=== PATIENT | male | born 1990 | race Hispanic/Latino ===

== ENCOUNTER 2019-03-05 22:47 | Emergency (ER) | payer SELFPAY ==
[2019-03-05 23:29] LABS: #Lymphocytes 1.8 thou/uL (1.20-3.40); #Monocytes 1.4 thou/uL (0.11-0.59); #Neutrophils 7.9 thou/uL (1.40-6.50); %Basophils 0.3 % (0.0-1.0); %Eosinophils 0.3 % (0.0-10.0); %Lymphocytes 15.9 % (21.0-51.0); %Monocytes 12.5 % (0.0-10.0); %Neutrophils 71.1 % (42.0-75.0); Hemoglobin 15.3 g/dL (14.0-18.0); Mean Corpuscular HGB CONC 33.5 g/dL (32.0-36.0); Mean Corpuscular Hemoglobin 32.3 pg (27.0-31.0); Mean Corpuscular Volume 96.6 fL (78.0-98.0); Mean Platelet Volume 7.8 fL (7.4-10.4); Platelet Count 216 thou/uL (130-400); RBC Distribution Width 12.8 % (11.5-14.5); Red Blood Cell (RBC) Count 4.73 mill/uL (4.70-6.10); White Blood Cell (WBC) Count 11.1 thou/uL (4.8-10.8)
[2019-03-05 23:46] LABS: ALT (SGPT) 24 U/L (8-55); AST (SGOT) 46 U/L (5-34); Alkaline Phosphatase 66 U/L (40-150); Anion Gap 16 mmol/L (10-20); BUN (Urea Nitrogen) 19 mg/dL (8.9-20.6); Calc. Creatinine Clearance 0 mL/min (70-130); Calcium 10.5 mg/dL (7.8-10.44); Carbon Dioxide 24 mmol/L (22-29); Chloride 103 mmol/L (98-107); Estimated GFR-MDRD 90; Globulin 3.1 g/dL (2.4-3.5); Glucose 110 mg/dL (70-105); Protein, Total 8.1 g/dL (6.0-8.3); Sodium 140 mmol/L (136-145)
--- NOTE | 2019-03-05 23:50 | CT ---
Head CT without contrast 03/05/2019: HISTORY: Facial tingling TECHNIQUE: Axial CT imaging at 5 mm intervals from vertex through skull base without contrast FINDINGS: The imaged paranasal sinuses and mastoid air cells are well aerated. No displaced calvarial fracture. No intracranial hemorrhage, midline shift, mass effect, or ventricular enlargement. IMPRESSION: No acute findings.
== END 2019-03-06 01:00 | disposition home or self-care (01) ==
LOC: ERS 22:47
DX: R20.2 Paresthesia of skin (principal); F17.210 Nicotine dependence, cigarettes, uncomplicated
CPT/HCPCS: 36415; 70450; 80053; 84443; 85025; 93005; 96360

== ENCOUNTER 2019-06-29 04:29 | Emergency (ER) | payer SELFPAY ==
[2019-06-29] MEDS ORDERED: Ibuprofen 800 MG TAB ONE (05:05)
== END 2019-06-29 05:08 | disposition home or self-care (01) ==
LOC: ERS 04:29
DX: H66.93 Otitis media, unspecified, bilateral (principal); F17.210 Nicotine dependence, cigarettes, uncomplicated
CPT/HCPCS: 99282

== ENCOUNTER 2024-05-03 09:53 | Inpatient (IN) | payer OTHER, SELFPAY ==
[2024-05-03] MEDS ORDERED: chlordiazePOXIDE HCl 25 MG CAP ONE (12:26)
[2024-05-03] MEDS ORDERED: Lorazepam 2 MG/ML VIAL ONE ×3 (12:26→17:39)
[2024-05-03 12:28] LABS: #Basophils 0.05 10x3/uL (0.0-0.2); %Basophils 0.6 % (0.0-1.0); %Eosinophils 2.1 % (0.0-10.0); %Lymphocytes 14.3 % (21.0-51.0); %Monocytes 13.8 % (0.0-10.0); Hematocrit 39.1 % (42.0-52.0); Hemoglobin 13.6 g/dL (14.0-18.0); Mean Corpuscular HGB CONC 34.8 g/dL (32.0-36.0); Mean Corpuscular Hemoglobin 34.2 pg (27.0-31.0); Mean Corpuscular Volume 98.2 fL (78.0-98.0); Mean Platelet Volume 10.1 fL (7.4-10.4); Platelet Count 227 10x3/uL (130-400); RBC Distribution Width 12.7 % (11.5-14.5); Red Blood Cell (RBC) Count 3.98 mill/uL (4.70-6.10)
[2024-05-03 12:42] LABS: Lipase 12 U/L (8-78); Magnesium 2.3 mg/dL (1.6-2.6)
[2024-05-03 12:43] LABS: Acetaminophen Less than 10 mcg/mL (Less than 10); Alcohol Less than 10.0 mg/dL (Less than 10); Salicylate Less than 8.0 mg/dL (Less than 8.0)
[2024-05-03 12:44] LABS: ALT (SGPT) 38 U/L (8-55); AST (SGOT) 104 U/L (5-34); Albumin 4.3 g/dL (3.5-5.0); Alkaline Phosphatase 70 U/L (40-110); Anion Gap 14 mmol/L (10-20); BUN (Urea Nitrogen) 26 mg/dL (8.9-20.6); Bilirubin, Total 1.5 mg/dL (0.2-1.2); Calc. Creatinine Clearance 0 mL/min (70-130); Calcium 9.9 mg/dL (7.8-10.44); Carbon Dioxide 23 mmol/L (22-29); Chloride 105 mmol/L (98-107); Estimated GFR 118; Globulin 3.1 g/dL (2.4-3.5); Glucose 81 mg/dL (70-105); Potassium 3.3 mmol/L (3.5-5.1); Protein, Total 7.4 g/dL (6.0-8.3); Sodium 139 mmol/L (136-145)
[2024-05-03 12:49] LABS: Troponin I Less than 0.010 ng/mL (< 0.028)
[2024-05-03] MEDS ORDERED: Senokot S 8.6-50 MG TAB PO PRN (14:30)
[2024-05-03] MEDS ORDERED: Calcium Carbonate 500 MG ChewTAB PO PRN (14:30)
[2024-05-03] MEDS ORDERED: Lorazepam 2 MG/ML VIAL IM PRN (14:30)
[2024-05-03] MEDS ORDERED: Ondansetron PF 4 MG/2 ML Vial IVP PRN (14:30)
[2024-05-03] MEDS ORDERED: Electrolyte Replacement Protocol 1 EACH FS SCH (14:30)
[2024-05-03] MEDS ORDERED: Acetaminophen 325 MG TAB PO PRN (14:30)
[2024-05-03] MEDS ORDERED: Lorazepam 1 MG TAB PO PRN (15:00)
[2024-05-03] MEDS ORDERED: Folic Acid 1 MG TAB ONE (16:37)
[2024-05-03] MEDS ORDERED: Thiamine HCl 200 MG/2 ML VIAL ONE (16:37)
[2024-05-03] MEDS ORDERED: Lorazepam 1 MG TAB ONE (16:37)
[2024-05-03] MEDS ORDERED: Multivit, Therapeutic 1 TAB ONE (16:37)
[2024-05-03] MEDS: Sodium Chloride 0.9% 1,000 ML IV SCH (16:44)
[2024-05-03] MEDS: Lorazepam 1 MG TAB PO SCH (16:45)
[2024-05-03] MEDS: Thiamine HCl 200 MG/2 ML VIAL SLOW IVP SCH (16:45)
[2024-05-03] MEDS: Folic Acid 1 MG TAB PO SCH (16:45)
[2024-05-03] MEDS: Multivit, Therapeutic 1 TAB PO SCH (16:45)
[2024-05-03 16:49] VITALS: BMI 22.8
[2024-05-03 18:06] LABS: Amphetamine Detected (NotDetected); Barbiturates Screen Not Detected (NotDetected); Benzodiazepine Screen Detected (NotDetected); Cocaine Metabolite Screen Not Detected (NotDetected); Methadone Not Detected (NotDetected); Methamphetamine Detected (NotDetected); Opiate Screen Not Detected (NotDetected); Oxycodone Screen Not Detected (NotDetected); Phencyclidine (PCP) Not Detected (NotDetected); THC/Cannabinoid Screen Not Detected (NotDetected); Tricyclic Screen Not Detected (NotDetected)
[2024-05-03] MEDS: Potassium Chloride 20 MEQ TAB PO SCH (21:36)
[2024-05-04 05:23] LABS: #Basophils 0.03 10x3/uL (0.0-0.2); %Basophils 0.5 % (0.0-1.0); %Eosinophils 6.5 % (0.0-10.0); %Lymphocytes 17.7 % (21.0-51.0); %Monocytes 13.9 % (0.0-10.0); %Neutrophils 61.2 % (42.0-75.0); Hematocrit 38.3 % (42.0-52.0); Hemoglobin 12.7 g/dL (14.0-18.0); Mean Corpuscular HGB CONC 33.2 g/dL (32.0-36.0); Mean Corpuscular Hemoglobin 33.2 pg (27.0-31.0); Mean Corpuscular Volume 100.3 fL (78.0-98.0); Mean Platelet Volume 10.1 fL (7.4-10.4); Platelet Count 214 10x3/uL (130-400); RBC Distribution Width 12.6 % (11.5-14.5); Red Blood Cell (RBC) Count 3.82 mill/uL (4.70-6.10)
[2024-05-04 06:19] LABS: ALT (SGPT) 32 U/L (8-55); AST (SGOT) 71 U/L (5-34); Albumin 3.5 g/dL (3.5-5.0); Alkaline Phosphatase 64 U/L (40-110); Anion Gap 11 mmol/L (10-20); BUN (Urea Nitrogen) 15 mg/dL (8.9-20.6); Calc. Creatinine Clearance 120 mL/min (70-130); Calcium 8.7 mg/dL (7.8-10.44); Carbon Dioxide 26 mmol/L (22-29); Chloride 106 mmol/L (98-107); Estimated GFR 118; Globulin 2.6 g/dL (2.4-3.5); Glucose 101 mg/dL (70-105); Magnesium 2.2 mg/dL (1.6-2.6); Phosphorus 4.3 mg/dL (2.3-4.7); Potassium 3.5 mmol/L (3.5-5.1); Protein, Total 6.1 g/dL (6.0-8.3); Sodium 139 mmol/L (136-145)
[2024-05-04] MEDS: Multivit, Therapeutic 1 TAB PO SCH (08:48)
[2024-05-04] MEDS: Potassium Chloride 20 MEQ TAB PO SCH (08:48)
[2024-05-04] MEDS: Folic Acid 1 MG TAB PO SCH (08:48)
[2024-05-04 11:18] VITALS: BP 119/70; TEMP 97.5
[2024-05-04] MEDS ORDERED: Lorazepam 1 MG TAB PO PRN (15:00)
[2024-05-04] MEDS ORDERED: Nicotine 21 MG PATCH TD SCH (20:00)
[2024-05-05] MEDS ORDERED: Lorazepam 1 MG TAB PO PRN (15:00)
[2024-05-05] MEDS ORDERED: Lorazepam 0.5 MG TAB PO SCH (15:00)
[2024-05-06] MEDS ORDERED: Lorazepam 0.5 MG TAB PO PRN (15:00)
[2024-05-06] MEDS ORDERED: Thiamine 100 MG TAB PO SCH (15:00)
== END 2024-05-04 11:30 | disposition home or self-care (01) | DRG 897 ==
LOC: ERS 09:53 → SUATTDRO 09:53 → ERHOLD 14:31 → 2NO 14:31 → OBSVTOIN 05-04 08:01
PROVIDERS: ADMIT Internal Medicine; ATTEND Internal Medicine
DX: F10.139 Alcohol abuse with withdrawal, unspecified (principal); F19.10 Other psychoactive substance abuse, uncomplicated; Z71.41 Alcohol abuse counseling and surveillance of alcoholic; Z71.51 Drug abuse counseling and surveillance of drug abuser; Z87.891 Personal history of nicotine dependence
CPT/HCPCS: 36415; 70450; 80053; 80306; 80307; 83690; 83735; 84100; 84443; 84484; 85025; 93005; 96374; 96375; G0378; J2060; J3411; J7030